=== PATIENT | male | born 1950 | race Caucasian/White ===

== ENCOUNTER 2023-10-19 19:46 | Emergency (ER) | payer OTHER ==
[2023-10-19 19:55] VITALS: BP 136/61; PULSE 70; RESP 20; TEMP 98.6
[2023-10-19 22:06] LABS: EPI CELLS 5 /uL (0-25.1); HYALINE CASTS 0 /uL (0-3.1); URINE APPEARANCE CLEAR; URINE BACTERIA 5 /uL (0-1359); URINE BILIRUBIN NEGATIVE (NEGATIVE); URINE COLOR YELLOW; URINE GLUCOSE (UA) NEGATIVE (NEGATIVE); URINE KETONE NEGATIVE (NEGATIVE); URINE LEUK ESTERASE NEGATIVE (NEGATIVE); URINE NITRITE NEGATIVE (NEGATIVE); URINE PROTEIN NEGATIVE (NEGATIVE); URINE RBC 51 /uL (0-23.9); URINE UROBILINOGEN 0.2 mg/dL (0.2-1.0); URINE WBC 5 /uL (0-25.8)
== END 2023-10-19 23:10 | disposition home or self-care (01) ==
LOC: JER 19:46
PROC: 0T9B70Z Drainage of Bladder with Drainage Device, Via Natural or Artificial Opening (ICD-10-PCS; principal; 2023-10-19)
DX: R33.9 Retention of urine, unspecified (principal)
CPT/HCPCS: 76857; 81003; 87086; 99284-25